=== PATIENT | male | born 1950 | race Caucasian/White ===

== ENCOUNTER 2022-06-30 03:41 | Observation (INO) | payer MEDICARE ==
[~2022-06-30] VITALS: Ht 170 cm; Wt 73.0 kg
--- NOTE | 2022-06-30 04:13 | ED Chest Pain ---
General Chief Complaint: Chest Pain Stated Complaint: CHEST PAIN Nursing Triage Note: Pt reports that he woke up at approx 0200 with c/o chest pain that increases with respiration. Pt is AOx3, denies cardiac hx, was recently placed on medication for htn. Pt also reports traveling from [place] via car on monday Source: patient Exam Limitations: no limitations History of Present Illness Date Seen by Provider: Jun 30, 2022 Time Seen by Provider: 03:50 Initial Comments 71-year-old male with history of lung cancer status post lobectomy on the right side presents to the emergency department today for chest pain, shortness of breath. It started about 2 AM waking him from sleep. It is described as mid central sharp pain with radiation to his right shoulder. It is worse with deep inspiration but is there in between respirations as well. He has never had similar pains in the past. No associated symptoms. No other aggravating or alleviating factors. Is described as mild to moderate but he "cannot kick it." It has been constant since onset. Notably he drove here from [place] on Monday. He denies any leg or calf pain, swelling. No history of DVT, PE. No history of cardiac disease. Recently started on blood pressure medications. No fever chills, cough, abdominal pain, change in bowel or bladder habits. Allergies and Home Medications Allergies Coded Allergies: No Known Drug Allergies (Unverified , 06/30/22) Patient Home Medication List Home Medication List Reviewed: Yes Aspirin (Aspirin EC) 81 Mg Tablet.dr, 81 MG PO DAILY Prescribed by: ALEKSANDR TORRES on 07/01/22930 Ibuprofen (Ibuprofen) 400 Mg Tablet, 400 MG PO Q6H PRN for PAIN Prescribed by: ALEKSANDR TORRES on 07/01/22930 Losartan Potassium (Losartan Potassium) 25 Mg Tablet, 25 MG PO DAILY, (Reported) Entered as Reported by: PATRICK SIN on 06/30/221314 Last Action: Reviewed Simvastatin (Simvastatin) 40 Mg Tablet, 40 MG PO HS, (Reported) Entered as Reported by: PATRICK SIN on 06/30/221314 Last Action: Reviewed Review of Systems Review of Systems Constitutional: no symptoms reported EENTM: No Symptoms Reported Respiratory: No Symptoms Reported Cardiovascular: Chest Pain Gastrointestinal: No Symptoms Reported Genitourinary: No Symptoms Reported Musculoskeletal: no symptoms reported Skin: no symptoms reported Psychiatric/Neurological: No Symptoms Reported Endocrine: No Symptoms Reported Hematologic/Lymphatic: No Symptoms Reported Past Ddtvnrd-Cfnvvn-Mqekrt Hx Patient Social History Tobacco Use?: Yes Use of E-Cig and/or Vaping dev: No Substance use?: No Alcohol Use?: No Immunizations Up To Date Influenza Vaccine Up-to-Date: Yes; Up-to-Date Past Medical History Surgery/Hospitalization HX: Lung cancer status post right lobectomy, hypertension Family Medical History Reviewed Nursing Family Hx No Pertinent Family Hx Physical Exam Vital Signs Vital Signs - First Documented 06/30/22 06/30/22 03:55 07:55 Temp 35.8 Pulse 82 Resp 18 B/P (MAP) 171/82 (111) Pulse Ox 98 O2 Delivery Room Air Capillary Refill : Height, Weight, BMI Height: '" Weight: lbs. oz. kg; 25.00 BMI Method: General Appearance: No Apparent Distress, WD/WN HEENT: PERRL/EOMI, Normal ENT Inspection, Pharynx Normal Neck: Full Range of Motion, Normal Inspection, Non Tender, Supple Respiratory: Chest Non Tender, Lungs Clear, Normal Breath Sounds, No Accessory Muscle Use, No Respiratory Distress Cardiovascular: Regular Rate, Rhythm, No Edema, No Gallop, No JVD, No Murmur, Normal Peripheral Pulses Gastrointestinal: Normal Bowel Sounds, No Organomegaly, No Pulsatile Mass, Non Tender, Soft Extremity: Normal Capillary Refill, Normal Inspection, Normal Range of Motion, Non Tender, No Calf Tenderness, No Pedal Edema Neurologic/Psychiatric: Alert, Oriented x3, No Motor/Sensory Deficits Skin: Normal Color, Warm/Dry Lymphatic: No Adenopathy Progress/Results/Core Measures Results/Orders Lab Results Laboratory Tests Test 06/30/22 03:55 Range/Units White Blood Count 10.4 4.3-11.0 10^3/uL Red Blood Count 4.96 4.30-5.52 10^6/uL Hemoglobin 15.2 13.3-17.7 g/dL Hematocrit 45 40-54 % Mean Corpuscular Volume 91 80-99 fL Mean Corpuscular Hemoglobin 31 25-34 pg Mean Corpuscular Hemoglobin Concent 34 32-36 g/dL Red Cell Distribution Width 13.5 10.0-14.5 % Platelet Count 223 130-400 10^3/uL Mean Platelet Volume 9.5 9.0-12.2 fL Immature Granulocyte % (Auto) 0 % Neutrophils (%) (Auto) 68 42-75 % Lymphocytes (%) (Auto) 22 12-44 % Monocytes (%) (Auto) 8 0-12 % Eosinophils (%) (Auto) 2 0-10 % Basophils (%) (Auto) 0 0-10 % Neutrophils # (Auto) 7.0 1.8-7.8 10^3/uL Lymphocytes # (Auto) 2.3 1.0-4.0 10^3/uL Monocytes # (Auto) 0.8 0.0-1.0 10^3/uL Eosinophils # (Auto) 0.2 0.0-0.3 10^3/uL Basophils # (Auto) 0.0 0.0-0.1 10^3/uL Immature Granulocyte # (Auto) 0.0 0.0-0.1 10^3/uL Sodium Level 140 135-145 MMOL/L Potassium Level 4.0 3.6-5.0 MMOL/L Chloride Level 104 98-107 MMOL/L Carbon Dioxide Level 25 21-32 MMOL/L Anion Gap 11 5-14 MMOL/L Blood Urea Nitrogen 18 7-18 MG/DL Creatinine 0.97 0.60-1.30 MG/DL Estimat Glomerular Filtration Rate 82 BUN/Creatinine Ratio 19 Glucose Level 114 H 70-105 MG/DL Calcium Level 8.6 8.5-10.1 MG/DL Corrected Calcium 8.4 L 8.5-10.1 MG/DL Total Bilirubin 0.3 0.1-1.0 MG/DL Aspartate Amino Transf (AST/SGOT) 26 5-34 U/L Alanine Aminotransferase (ALT/SGPT) 14 0-55 U/L Alkaline Phosphatase 93 40-136 U/L Troponin I < 0.30 <0.30 NG/ML Total Protein 7.2 6.4-8.2 GM/DL Albumin 4.3 3.2-4.5 GM/DL My Orders Orders - ALYSHAVASYL Barragan DO Ekg Tracing (06/30/22 03:52) Cbc With Automated Diff (06/30/22 04:07) Chest 1 View Ap/Pa Only (06/30/22 04:07) Comprehensive Metabolic Panel (06/30/22 04:07) Aspirin Chewable Tablet (Baby Aspirin Ch (06/30/22 04:15) Nitroglycerin 0.4 Mg Btl 25's (Nitrostat (06/30/22 04:15) Ed Iv/Invasive Line Start (06/30/22 04:07) Troponin I Fs (06/30/22 04:07) Ct Angio Chest W (06/30/22 04:08) Iohexol Injection (Omnipaque 350 Mg/Ml 1 (06/30/22 04:30) Received Contrast (Hold Metformin- Contr (06/30/22 04:30) Sodium Chloride Flush (Catheter Flush Sy (06/30/22 04:30) Ns (Ivpb) (Sodium Chloride 0.9% Ivpb Bag (06/30/22 04:30) Fentanyl Inj (Sublimaze Injection) (06/30/22 04:30) Ed Admission (Communication) (06/30/22 05:24) Medications Given in ED Vital Signs/I&O 06/30/22 06/30/22 06/30/22 03:55 07:55 08:39 Temp 35.8 35.8 Pulse 82 96 Resp 18 B/P (MAP) 171/82 (111) 148/77 Pulse Ox 98 95 O2 Delivery Room Air Room Air Blood Pressure Mean: 111 EKG : Comment Sinus rhythm with a rate of 81 bpm. Normal intervals. Normal axis. No ST or T wave abnormalities. No ectopy. No STEMI Diagnostic Imaging Diagonstic Imaging: Xray Plain Films/CT/US/NM/MRI: chest Comments AP chest x-ray: Negative for acute CT angiography chest: Departure Communication (Admissions) The patient remained hemodynamically stable. He has had continued pain throughout his stay. Nitroglycerin did not seem to help at all. Fentanyl helped some. He did have surgery his pain to about an 8 or 9 out of 10, now back to about a 6 out of 10 after fentanyl. He is in no obvious distress and his blood pressure, heart rate and pulse ox are normal. CTA of his chest is negative on my review, pending radiology read. Chest x-ray is negative. Troponin is negative and EKG is nonischemic. I spoke with Dr. Stover given the fact the patient is having continued pain and is moderate risk for coronary artery disease. He accepts the patient admission and transfer to [facility] in [place]. The patient is comfortable we will transfer at this time. Question s were sought and answered. Pending ambulance transport Impression Primary Impression: Chest pain Qualified Codes: R07.9 - Chest pain, unspecified Disposition: 30 STILL A PATIENT Condition: Stable Admissions Decision to Admit Reason: Admit from ER (General) Departure-Patient Inst. Referrals: NO,LOCAL PHYSICIAN (PCP/Family) Primary Care Physician Scripts Ibuprofen (Ibuprofen) 400 Mg Tablet 400 MG PO Q6H PRN for PAIN, #20 TAB Prov: ALEKSANDR TORRES MD 07/01/22 Aspirin (Aspirin EC) 81 Mg Tablet. 81 MG PO DAILY, #30 TAB Prov: ALEKSANDR TORRES MD 07/01/22 VASYL ENCARNACION DO Jun 30, 2022 04:13
[2022-06-30] MEDS ORDERED: ASPIRIN 81 MG CHEW (CHILDREN'S ASA) PO ONE (04:15)
[2022-06-30] MEDS ORDERED: NITROGLYCERIN 0.4 MG SL TABS BTL 25'S SL PRN ×2 (04:15→09:45)
[2022-06-30 04:19] LABS: BASOPHILS % (AUTO) 0 % (0-10); EOSINOPHILS # (AUTO) 0.2 10^3/uL (0.0-0.3); EOSINOPHILS % (AUTO) 2 % (0-10); HEMATOCRIT 45 % (40-54); HEMOGLOBIN 15.2 g/dL (13.3-17.7); LYMPHOCYTES # (AUTO) 2.3 10^3/uL (1.0-4.0); LYMPHOCYTES % (AUTO) 22 % (12-44); MEAN CORPUSCULAR HEMOGLOBIN 31 pg (25-34); MEAN CORPUSCULAR HGB CONC 34 g/dL (32-36); MEAN CORPUSCULAR VOLUME 91 fL (80-99); MEAN PLATELET VOLUME 9.5 fL (9.0-12.2); MONOCYTES # (AUTO) 0.8 10^3/uL (0.0-1.0); MONOCYTES % (AUTO) 8 % (0-12); NEUTROPHILS % (AUTO) 68 % (42-75); PLATELET COUNT 223 10^3/uL (130-400); WHITE BLOOD COUNT 10.4 10^3/uL (4.3-11.0)
[2022-06-30] MEDS ORDERED: fentaNYL INJ 100 MCG/2 ML AMP IVP ONE (04:30)
[2022-06-30] MEDS ORDERED: IOHEXOL 350 MG/ML 100 ML (OMNIPAQUE 350) VIAL IV ONE (04:30)
[2022-06-30] MEDS ORDERED: NS 100 ML (IVPB) BAG IV ONE (04:30)
[2022-06-30] MEDS ORDERED: HOLD METFORMIN - RECEIVED CONTRAST 20 ML VIAL IV SCH (04:30)
[2022-06-30 04:52] LABS: BILIRUBIN,TOTAL 0.3 MG/DL (0.1-1.0); CALCIUM 8.6 MG/DL (8.5-10.1); CREATININE SERUM 0.97 MG/DL (0.60-1.30)
[2022-06-30 04:53] LABS: ALBUMIN 4.3 GM/DL (3.2-4.5); TOTAL PROTEIN 7.2 GM/DL (6.4-8.2)
[2022-06-30] MEDS: CATHETER FLUSH 10 ML SYR IV PRN ×2 (05:13→21:07)
--- NOTE | 2022-06-30 05:14 | Diagnostic Imaging Report ---
INDICATION: Chest pain. No prior examinations are available for comparison. FINDINGS: The heart size, mediastinal configuration, and pulmonary vascularity are within normal limits. There is no pleural effusion, pneumothorax, or pneumonia. The osseous structures are unremarkable. IMPRESSION: No acute cardiopulmonary abnormality. Dictated by: Dictated on workstation # [id number]
--- NOTE | 2022-06-30 06:46 | Diagnostic Imaging Report ---
PROCEDURE: CT angiography of the chest with contrast. TECHNIQUE: Multiple contiguous axial images were obtained through the chest after uneventful bolus administration of intravenous contrast. 3D reconstructed CTA MIP acquisitions were also performed. Auto Exposure Controls were utilized during the CT exam to meet ALARA standards for radiation dose reduction. INDICATION: Chest pain, shortness of breath. FINDINGS: There are no discrete pulmonary nodules, masses or infiltrates. There is a benign-appearing air cysts in left lung base. There is no pleural or pericardial fluid. There is no pneumothorax. Heart size is normal. The thoracic aorta is normal in caliber without evidence of dissection. There are no filling defects within pulmonary arteries to suggest pulmonary embolism. No pathologically enlarged adenopathy in the chest. There is a cyst in left lobe the liver. Remainder of intra-abdominal structures are unremarkable. There are degenerative changes in the spine. IMPRESSION: No evidence of aortic aneurysm, dissection or pulmonary embolism. Benign-appearing air cysts in the left lung. Benign cyst in the liver. Dictated by: Dictated on workstation # [id number]
[2022-06-30 08:52] VITALS: BP 163/93
[2022-06-30] MEDS ORDERED: ONDANSETRON 4 MG/2 ML (SDV) Z0FRAN IVP PRN (09:45)
[2022-06-30] MEDS ORDERED: PATIENT MAY USE OWN MEDS, ALL PO SCH (09:45)
[2022-06-30] MEDS ORDERED: morphine INJ 4 MG/ML 1 ML (VIAL/SYRINGE) IV PRN (09:45)
[2022-06-30 11:51] VITALS: BP 165/79
--- NOTE | 2022-06-30 12:23 | Consultation-Cardiology ---
HPI-Cardiology Cardiology Consultation Date of Consultation 06/30/22 Date of Admission Time Seen by Provider: 12:18 Indication: Chest pain HPI 71 years old gentleman with history of lung cancer, history of right lobectomy. Started to have sudden onset chest pain in the retrosternal area and radiating to both sides mainly to the right side has been worsening. Pain upon inspira tion and movement. No dizziness. No palpitation. No syncope or near syncopal episodes. Home Medications & Allergies Allergies: Coded Allergies: No Known Drug Allergies (Unverified , 06/30/22) Home Medication List Reviewed: Yes FDR-Pebugv-Nbioum Hx Patient Social History Marital Status: Employed/Student: retired Smoking Status: Former Smoker Have you traveled recently?: Yes Where was recent travel?: [place] Alcohol Use?: No Substance type: Marijuana Past Medical History Discussed below Family Medical History Significant Family History: No Pertinent Family Hx Review of Systems-General Review of Systems Constitutional: no symptoms reported EENTM: see HPI, no symptoms reported Respiratory: no symptoms reported, see HPI, short of breath Cardiovascular: No no symptoms reported; see HPI, chest pain; No edema, No Hx of Intervention, No palpitations, No syncope, No vascular heart diseas, No other Gastrointestinal: no symptoms reported, see HPI Genitourinary: no symptoms reported, see HPI Musculoskeletal: no symptoms reported Skin: no symptoms reported Psychiatric/Neurological: No Symptoms Reported Reviewed Test Results Reviewed Test Results Lab Laboratory Tests Test 06/30/22 03:55 Range/Units White Blood Count 10.4 4.3-11.0 10^3/uL Red Blood Count 4.96 4.30-5.52 10^6/uL Hemoglobin 15.2 13.3-17.7 g/dL Hematocrit 45 40-54 % Mean Corpuscular Volume 91 80-99 fL Mean Corpuscular Hemoglobin 31 25-34 pg Mean Corpuscular Hemoglobin Concent 34 32-36 g/dL Red Cell Distribution Width 13.5 10.0-14.5 % Platelet Count 223 130-400 10^3/uL Mean Platelet Volume 9.5 9.0-12.2 fL Immature Granulocyte % (Auto) 0 % Neutrophils (%) (Auto) 68 42-75 % Lymphocytes (%) (Auto) 22 12-44 % Monocytes (%) (Auto) 8 0-12 % Eosinophils (%) (Auto) 2 0-10 % Basophils (%) (Auto) 0 0-10 % Neutrophils # (Auto) 7.0 1.8-7.8 10^3/uL Lymphocytes # (Auto) 2.3 1.0-4.0 10^3/uL Monocytes # (Auto) 0.8 0.0-1.0 10^3/uL Eosinophils # (Auto) 0.2 0.0-0.3 10^3/uL Basophils # (Auto) 0.0 0.0-0.1 10^3/uL Immature Granulocyte # (Auto) 0.0 0.0-0.1 10^3/uL Sodium Level 140 135-145 MMOL/L Potassium Level 4.0 3.6-5.0 MMOL/L Chloride Level 104 98-107 MMOL/L Carbon Dioxide Level 25 21-32 MMOL/L Anion Gap 11 5-14 MMOL/L Blood Urea Nitrogen 18 7-18 MG/DL Creatinine 0.97 0.60-1.30 MG/DL Estimat Glomerular Filtration Rate 82 BUN/Creatinine Ratio 19 Glucose Level 114 H 70-105 MG/DL Calcium Level 8.6 8.5-10.1 MG/DL Corrected Calcium 8.4 L 8.5-10.1 MG/DL Total Bilirubin 0.3 0.1-1.0 MG/DL Aspartate Amino Transf (AST/SGOT) 26 5-34 U/L Alanine Aminotransferase (ALT/SGPT) 14 0-55 U/L Alkaline Phosphatase 93 40-136 U/L Troponin I < 0.30 <0.30 NG/ML Total Protein 7.2 6.4-8.2 GM/DL Albumin 4.3 3.2-4.5 GM/DL Physical Exam Physical Exam Vital Signs Vital Signs - First Documented 06/30/22 06/30/22 03:55 07:55 Temp 35.8 Pulse 82 Resp 18 B/P (MAP) 171/82 (111) Pulse Ox 98 O2 Delivery Room Air Capillary Refill : Height, Weight, BMI Height: '" Weight: lbs. oz. kg; 25.25 BMI Method: General Appearance: No Apparent Distress, WD/WN Eyes: Bilateral Eye Normal Inspection, Bilateral Eye PERRL, Bilateral Eye EOMI HEENT: PERRL/EOMI, Normal ENT Inspection, Pharynx Normal Neck: Full Range of Motion, Normal Inspection, Non Tender, Supple Respiratory: Chest Non Tender, Lungs Clear, Normal Breath Sounds, No Accessory Muscle Use, No Respiratory Distress Cardiovascular: Regular Rate, Rhythm, No Edema, No Gallop, No JVD, No Murmur, Normal Peripheral Pulses Gastrointestinal: Normal Bowel Sounds, No Organomegaly, No Pulsatile Mass, Non Tender, Soft Back: Normal Inspection, No CVA Tenderness, No Vertebral Tenderness Extremity: Normal Capillary Refill, Normal Inspection, Normal Range of Motion, Non Tender, No Calf Tenderness, No Pedal Edema Neurologic/Psychiatric: Alert, Oriented x3, No Motor/Sensory Deficits Skin: Normal Color, Warm/Dry Lymphatic: No Adenopathy A/P-Cardiology Admission Diagnosis Chest pain Lung cancer Hypertension Assessment/Plan Chest pain, nonspecific etiology, atypical in presentation. Not reproducible by palpation, worsening by deep inspiration or movement, appears to be pleuritic in nature EKG and cardiac enzymes are normal, planning to evaluate echocardiogram. CTA was done on June 30, 2022 and did not show any aneurysm or pulm artery embolism Unlikely to be cardiac in nature History of lung cancer with right lobectomy. Followed and managed by primary care physician Hypertension, restart home medication monitor blood pressure Clinical Quality Measures AMI/AHF: ASA po Prior to arrival: AMANUEL Pacheco MD Jun 30, 2022 12:23
--- NOTE | 2022-06-30 12:49 | History & Physical-Hospitalist ---
History of Present Illness HPI/Chief Complaint Pt is 71yoCM With a PMH of HTN, HLD, tobacco abuse (quit 6 years ago), and lung cancer who presented to the ER due to chest pain. He reports he just drove here from [place] to do some hunting and awoke last night at 2 AM with chest pain. He states he has never had anything similar to this. He reports it goes across his chest and into his back between his shoulder blades. He felt clammy but denied any nausea or shortness of breath. He does have a history of lung cancer and lobectomy and given his long drive he underwent a CTA in the emergency department which was negative for PE and dissection. He continued to have chest pain and so was admitted for observation and cardiac evaluation. He reports since receiving the fentanyl he is feeling better. Source: patient Date Seen 06/30/22 Time Seen by a Provider: 11:00 Attending Physician Renetta,Local Physician PCP Admitting Physician: Mateus Stover MD Attending Physician: Mateus Stover MD Referring Physician Date of Admission Jun 30, 2022 at 08:40 Home Medications & Allergies Home Medications Reviewed patient Home Medication Reconciliation performed by pharmacy medication reconciliations bench lay out technician and/or nursing. Patients Allergies have been reviewed. Allergies Allergies Coded Allergies No Known Drug Allergies ([id number]/17/22) Past Atszzsf-Pozwll-Lvzmzj Hx Patient Social History Marrital Status: Employed/Student: retired Tobacco Use?: No Smoking Status: Former Smoker Use of E-Cig and/or Vaping dev: No Substance use?: Yes Substance type: Marijuana Substance frequency: Daily Alcohol Use?: No Pt feels they are or have been: No Immunizations Up To Date Tetanus Booster (TDap): Unknown Current Status Advance Directives: No Communicates: Verbally Primary Language: Cymraes Preferred Spoken Language: Cymraes Sensory deficits: Vision impairment Implanted or Applied Medical D: None Family Medical History Reviewed Nursing Family Hx No Pertinent Family Hx Review of Systems Constitutional: no symptoms reported EENTM: no symptoms reported Respiratory: No dyspnea on exertion, No short of breath Cardiovascular: see HPI Genitourinary: no symptoms reported Musculoskeletal: no symptoms reported Skin: no symptoms reported Psychiatric/Neurological: No Symptoms Reported Physical Exam Physical Exam Vital Signs Vital Signs - First Documented 06/30/22 06/30/22 03:55 07:55 Temp 35.8 Pulse 82 Resp 18 B/P (MAP) 171/82 (111) Pulse Ox 98 O2 Delivery Room Air Capillary Refill : Height, Weight, BMI Height: '" Weight: lbs. oz. kg; 25.25 BMI Method: General Appearance: No Apparent Distress, WD/WN, Thin HEENT: PERRL/EOMI, Moist Mucous Membranes Neck: Normal Inspection, Supple Respiratory: Lungs Clear, No Accessory Muscle Use, No Respiratory Distress Cardiovascular: Regular Rate, Rhythm, No Murmur Gastrointestinal: Normal Bowel Sounds, Non Tender, Soft Extremity: Normal Capillary Refill, No Calf Tenderness, No Pedal Edema Neurologic/Psychiatric: Alert, Oriented x3, Normal Mood/Affect Skin: Normal Color, Warm/Dry Results Results/Procedures Labs Laboratory Tests 06/30/22 03:55 07/01/22 05:20 Patient resulted labs reviewed. Imaging: Reviewed Imaging Report Imaging [facility] [place] NAME: MARILIA HEBERT [facility] REC#: [id number] PT STATUS: ADM Power : 1950 PHYSICIAN: VASYL ENCARNACION DO ADMIT DATE: 06/30/22 Signed Date of Exam:06/30/22 CT ANGIO CHEST W PROCEDURE: CT angiography of the chest with contrast. TECHNIQUE: Multiple contiguous axial images were obtained through the chest after uneventful bolus administration of intravenous contrast. 3D reconstructed CTA MIP acquisitions were also performed. Auto Exposure Controls were utilized during the CT exam to meet ALARA standards for radiation dose reduction. INDICATION: Chest pain, shortness of breath. FINDINGS: There are no discrete pulmonary nodules, masses or infiltrates. There is a benign-appearing air cysts in left lung base. There is no pleural or pericardial fluid. There is no pneumothorax. Heart size is normal. The thoracic aorta is normal in caliber without evidence of dissection. There are no filling defects within pulmonary arteries to suggest pulmonary embolism. No pathologically enlarged adenopathy in the chest. There is a cyst in left lobe the liver. Remainder of intra-abdominal structures are unremarkable. There are degenerative changes in the spine. IMPRESSION: No evidence of aortic aneurysm, dissection or pulmonary embolism. Benign-appearing air cysts in the left lung. Benign cyst in the liver. Dictated by: Dictated on workstation # [id number] Dict: 06/30/22 0642 Trans: 06/30/22 1046 [facility] [id number] Interpreted by: SHAYNE DAUGHERTY MD Electronically signed by: SHAYNE DAUGHERTY MD 06/30/22 1046 [facility] [place], [place] NAME: MARILIA HEBERT MED REC#: [id number] PT STATUS: ADM Power : 1950 PHYSICIAN: VASYL ENCARNACION DO ADMIT DATE: 06/30/22 Signed Date of Exam:06/30/22 CHEST 1 VIEW AP/PA ONLY INDICATION: Chest pain. No prior examinations are available for comparison. FINDINGS: The heart size, mediastinal configuration, and pulmonary vascularity are within normal limits. There is no pleural effusion, pneumothorax, or pneumonia. The osseous structures are unremarkable. IMPRESSION: No acute cardiopulmonary abnormality. Dictated by: Dictated on workstation # [id number] Dict: 06/30/22 0511 Trans: 06/30/22 1017 [facility] [id number] Interpreted by: SHAYNE DAUGHERTY MD Electronically signed by: SHAYNE DAUGHERTY MD 06/30/22 1017 Assessment/Plan Admission Diagnosis Chest pain Admission Status: Observation Assessment and Plan Chest pain Troponin negative Repeat pending Cardiology consulted Does not sound cardiac in nature will try toradol Telemetry Lung cancer s/p lobectomy In remission Follows with oncology in [place] HTN HLD Resume home meds when med rec done Diagnosis/Problems Diagnosis/Problems (1) Lung cancer (2) History of lobectomy of lung (3) HTN (hypertension) (4) HLD (hyperlipidemia) (5) Chest pain Qualifiers: Chest pain type: unspecified Qualified Codes: R07.9 - Chest pain, unspecified Clinical Quality Measures AMI/AHF: ASA po Prior to arrival: ALEKSANDR Guerra MD Jun 30, 2022 12:49 pm
[2022-06-30] MEDS ORDERED: LOSARTAN 25 MG (COZAAR) TAB PO NR (13:15)
[2022-06-30] MEDS ORDERED: LOSA25TA41 PO (13:15)
[2022-06-30] MEDS ORDERED: SIMV40TA25 PO (13:15)
[2022-06-30] MEDS ORDERED: ONDANSETRON 4 MG/2 ML (SDV) Z0FRAN IV PRN (14:15)
[2022-06-30] MEDS ORDERED: ACETAMINOPHEN 500 MG TAB (TYLENOL) PO PRN (14:15)
[2022-06-30] MEDS ORDERED: ANTACID SUSP 30 ML UDC (MYLANTA) PO PRN (14:15)
[2022-06-30] MEDS ORDERED: BENZONATATE 100 MG (TESSALON) CAPSULE PO PRN (14:15)
[2022-06-30] MEDS ORDERED: MELATONIN 3 MG TABLET PO PRN (14:15)
[2022-06-30] MEDS ORDERED: MILK OF MAGNESIA 400 MG/5 ML 30 ML UDC PO PRN (14:15)
[2022-06-30] MEDS: KETOROLAC 15 MG/ML VIAL IVP PRN ×2 (14:23→21:06)
[2022-06-30 15:41] VITALS: BP 100/63
[2022-06-30 19:50] VITALS: BP 135/64
[2022-06-30 23:15] VITALS: BP 113/67
[2022-07-01 03:39] VITALS: BP 155/73
[2022-07-01 06:03] LABS: HEMATOCRIT 44 % (40-54); HEMOGLOBIN 15.3 g/dL (13.3-17.7); MEAN CORPUSCULAR HEMOGLOBIN 31 pg (25-34); MEAN CORPUSCULAR HGB CONC 35 g/dL (32-36); MEAN CORPUSCULAR VOLUME 90 fL (80-99); MEAN PLATELET VOLUME 9.7 fL (9.0-12.2); PLATELET COUNT 217 10^3/uL (130-400); WHITE BLOOD COUNT 11.1 10^3/uL (4.3-11.0)
[2022-07-01 06:14] LABS: POTASSIUM 4.1 MMOL/L (3.6-5.0)
[2022-07-01 06:19] LABS: CREATININE SERUM 0.98 MG/DL (0.60-1.30)
[2022-07-01 08:06] VITALS: BP 139/69
[2022-07-01] MEDS ORDERED: ASPIRIN E.C. 81 MG (ECOTRIN) TAB PO SCH (09:00)
[2022-07-01] MEDS ORDERED: LOSARTAN 25 MG (COZAAR) TAB PO SCH (09:00)
--- NOTE | 2022-07-01 09:27 | Discharge Summary ---
Diagnosis/Chief Complaint Date of Admission Jun 30, 2022 at 08:40 Date of Discharge Admission Diagnosis Chest pain Primary Care No,Local Physician Discharge Diagnosis (1) Lung cancer (2) History of lobectomy of lung (3) HTN (hypertension) (4) HLD (hyperlipidemia) (5) Chest pain Discharge Summary Discharge Physical Exam Allergies: Coded Allergies: No Known Drug Allergies (Unverified , 06/30/22) Vitals & I&Os Vital Signs Date Time Temp Pulse Resp B/P (MAP) Pulse Ox O2 Delivery O2 Flow Rate FiO2 07/01/22 10:28 37.4 99 18 139/69 96 Room Air General Appearance: No Apparent Distress, WD/WN, Thin Respiratory: Chest Non Tender, Lungs Clear Cardiovascular: Regular Rate, Rhythm, No Murmur Neurologic/Psychiatric: Alert, Oriented x3 Hospital Course Patient was admitted to the hospital secondary to chest pain. He was admitted on telemetry and cardiology was consulted. Troponins were trended and were negative. Symptoms did not improve with nitro but did with Toradol. Echo was done which revealed a preserved EF and no valvular abnormalities. This was likely pleuritic chest pain. He did develop a fever and COVID and flu swabs were negative. CTA was negative for dissection, aneurysm or pulmonary emboli. Symptoms resolved and he was able to be discharged home in stable and improved condition to follow-up with his primary care physician in [place]. Labs (last 24 hrs) Laboratory Tests 06/30/22 12:33: Troponin I < 0.028 06/30/22 14:30: Influenza Type A (RT-PCR) Not Detected, Influenza Type B (RT-PCR) Not Detected, SARS-CoV-2 RNA (RT-PCR) Not Detected 07/01/22 05:20: White Blood Count 11.1H, Red Blood Count 4.95, Hemoglobin 15.3, Hematocrit 44, Mean Corpuscular Volume 90, Mean Corpuscular Hemoglobin 31, Mean Corpuscular Hemoglobin Concent 35, Red Cell Distribution Width 13.3, Platelet Count 217, Mean Platelet Volume 9.7, Sodium Level 137, Potassium Level 4.1, Chloride Level 107, Carbon Dioxide Level 19L, Anion Gap 11, Blood Urea Nitrogen 21H, Creatinine 0.98, Estimat Glomerular Filtration Rate 81, BUN/Creatinine Ratio 21, Glucose Level 106H, Calcium Level 9.0, Triglycerides Level 82, Cholesterol Level 162, LDL Cholesterol Direct 94, VLDL Cholesterol 16, HDL Cholesterol 48 Patient resulted labs reviewed. Pending Labs Laboratory Tests 07/01/22 05:20: White Blood Count 11.1, Red Blood Count 4.95, Hemoglobin 15.3, Hematocrit 44, Mean Corpuscular Volume 90, Mean Corpuscular Hemoglobin 31, Mean Corpuscular Hemoglobin Concent 35, Red Cell Distribution Width 13.3, Platelet Count 217, Mean Platelet Volume 9.7, Sodium Level 137, Potassium Level 4.1, Chloride Level 107, Carbon Dioxide Level 19, Anion Gap 11, Blood Urea Nitrogen 21, Creatinine 0.98, Estimat Glomerular Filtration Rate 81, BUN/Creatinine Ratio 21, Glucose Level 106, Calcium Level 9.0, Triglycerides Level 82, Cholesterol Level 162, LDL Cholesterol Direct 94, VLDL Cholesterol 16, HDL Cholesterol 48 Imaging: Reviewed Imaging Report Discussion & Recommendations Discharge Planning: >30 minutes discharge planning Discharge Home Medications: Active Scripts Active Ibuprofen 400 Mg Tablet 400 Mg PO Q6H PRN Aspirin EC (Aspirin) 81 Mg Tablet.dr 81 Mg PO DAILY Reported Simvastatin 40 Mg Tablet 40 Mg PO HS Losartan Potassium 25 Mg Tablet 25 Mg PO DAILY Instructions to patient/family Please see electronic discharge instructions given to patient. Clinical Quality Measures AMI/AHF: ASA po Prior to arrival: No Problem Qualifiers (1) Chest pain: Chest pain type: unspecified Qualified Codes: R07.9 - Chest pain, unspecified ALEKSANDR TORRES MD Jul 01, 2022 9:27 am
--- NOTE | 2022-07-01 09:28 | Discharge Inst-Simple/Standard ---
Discharge Inst-Standard Discharge Medications New, Converted or Re-Newed RX: Transmitted to Pharmacy Patient Instructions/Follow Up Plan of Care/Instructions/FU: Please continue to take your medications as written. Please follow up with your primary care doctor to follow up this hospital stay. Activity as Tolerated: Yes Discharge Diet: No Restrictions Return to The Hospital For: Chest pain, shortness of breath, fever, weakness, if you feel you are getting worse. ALEKSANDR TORRES MD Jul 01, 2022 09:28
--- NOTE | 2022-07-01 09:29 | Cardiology Progress Note ---
Subjective Date Seen by Provider: Jul 01, 2022 Time Seen by Provider: 09:00 Subjective/Events-last exam Patient was seen and evaluated, laying down in bed, reporting significant improvement in his chest pain. Had low-grade fever today. Review of Systems General: No Chills, No Night Sweats, No Fatigue, No Malaise, No Appetite, No Other HEENT: No Head Aches, No Visual Changes, No Eye Pain, No Ear Pain, No Dysphasia, No Sinus Congestion, No Post Nasal Drip, No Sore Throat, No Other Pulmonary: No Dyspnea, No Cough, No Pleuritic Chest Pain, No Other Cardiovascular: No: Chest Pain, Palpitations, Orthopnea, Paroxysmal Noc. Dyspnea, Edema, Lt Headedness, Other Objective-Cardiology Exam Last Set of Vital Signs Vital Signs 07/01/22 08:06 Temp 37.4 Pulse 99 Resp 18 B/P (MAP) 139/69 (92) Pulse Ox 96 O2 Delivery Room Air I&O Intake and Output 07/01/22 00:00 Intake Total 790 ml Balance 790 ml Intake Oral 790 ml # Voids 6 # Emeses 1 Daily Weight Change No General: Alert, Oriented X3, Cooperative HEENT: Atraumatic, PERRLA Neck: Supple, No JVD, No Thyromegaly Lungs: Clear to Auscultation, Normal Air Movement Heart: Regular Rate, Normal S1, Normal S2, No Murmurs Abdomen: Normal Bowel Sounds, Soft, No Tenderness, No Hepatosplenomegaly, No Masses Extremities: No Clubbing, No Cyanosis, No Edema, Normal Pulses, No Tenderness/Swelling Skin: No Rashes, No Breakdown, No Significant Lesion Neuro: Normal Gait, Normal Speech, Strength at 5/5 X4 Ext, Normal Tone, Sensati on Intact Psych/Mental Status: Mental Status NL, Mood NL Results Lab Laboratory Tests 07/01/22 05:20 A/P-Cardiology Admission Diagnosis Chest pain Lung cancer Hypertension Assessment/Plan Chest pain, nonspecific etiology, atypical in presentation. Not reproducible by palpation, worsening by deep inspiration or movement, appears to be pleuritic in nature EKG and cardiac enzymes are normal, planning to evaluate echocardiogram. CTA was done on June 30, 2022 and did not show any aneurysm or pulm artery embolism Chest pain is unlikely to be cardiac in nature. Cardiac enzymes and EKG were normal Discussed possibility of doing stress test as an outpatient. Patient will follow-up with cardiology at his home. Low-grade fever, unknown etiology. I will repeat chest x-ray today. Managed by primary care team History of lung cancer with right lobectomy. Followed and managed by primary care physician Hypertension, maintained on losartan 25 mg daily Hyperlipidemia, maintained on simvastatin. Continue to monitor AMANUEL ALAS MD Jul 01, 2022 09:29
[2022-07-01] MEDS ORDERED: IBUP-1779 PO (09:31)
[2022-07-01] MEDS ORDERED: ASPI-1238 PO (09:31)
[2022-07-01 10:28] VITALS: BP 139/69
== END 2022-07-01 09:32 | disposition home or self-care (01) ==
LOC: ER FS 03:47 → 4TH 08:39 → UNDOADMOB 08:40 → 4TH 08:40 → UNDODISOB 07-01 09:32
PROVIDERS: ADMIT Internal Medicine; ATTEND Internal Medicine
DX: R07.89 Other chest pain (principal); R50.9 Fever, unspecified; I10 Essential (primary) hypertension; E78.5 Hyperlipidemia, unspecified; C34.90 Malignant neoplasm of unspecified part of unspecified bronchus or lung; Z90.2 Acquired absence of lung [part of]; Z87.891 Personal history of nicotine dependence
CPT/HCPCS: 36415; 71045; 71275; 80048; 80053; 80061; 84484 ×2; 85025; 85027; 87636; 93005; 96375; 96376; 99283; C8929; G0378; 93306; Q9967